=== PATIENT | female | born 1945 | race Caucasian/White ===

== ENCOUNTER 2017-11-19 12:37 | Emergency (ER) | payer OTHER ==
[~2017-11-19] VITALS: Ht 165.1 cm; Wt 94.8 kg
--- NOTE | 2017-11-19 12:39 | NUR ---
[facility] DT SYNCOPAL EPISODE. PATIENT NOTED WITH DISCOLORATION AND SLIGHT BLEEDING ON FACE/ NOSE BRIDGE. PER REPORT PATIENT IS HYPOTENSIVE IN FILED. A LITER OF NS GIVEN WITH HELP. PATIENT IS AWAKE AND ALERT. [place] SPEAKING, NOT IN DISTRESS. SKIN IS WARM TO TOUCH AND NON DIAPHORETIC. AFEBRILE,VSS
--- NOTE | 2017-11-19 13:05 | NUR ---
MARKETING COORDINATOR AT BEDSIDE FOR BLOOD DRAW.
[2017-11-19 13:08] LABS: BASOPHILS # (AUTO) 0.1 /CMM (0.0-0.2); BASOPHILS % (AUTO) 0.8 % (0.0-2.0); EOSINOPHILS % (AUTO) 1.4 % (0.0-6.0); HEMATOCRIT 33 % (33-45); HEMOGLOBIN 11.3 g/dL (11.5-14.8); LYMPHOCYTES # (AUTO) 1.9 /CMM (0.8-4.8); LYMPHOCYTES % (AUTO) 21.6 % (20.0-44.0); MEAN CORPUSCULAR HEMOGLOBIN 29 PG (26.0-33.0); MEAN CORPUSCULAR HGB CONC 35 g/dl (31.0-36.0); MEAN CORPUSCULAR VOLUME 83 fL (82-100); MONOCYTES # (AUTO) 0.5 /CMM (0.1-1.30); MONOCYTES % (AUTO) 5.3 % (2.0-12.0); NEUTROPHILS # (AUTO) 6.2 /CMM (1.8-8.9); NEUTROPHILS % (AUTO) 70.9 % (43.0-81.0); PLATELET COUNT (AUTO) 168 /CMM (150-450); RDW COEFFICIENT OF VARIATION 14.4 (11.5-15.0); RED BLOOD CELL COUNT(AUTO) 3.92 MIL/uL (4.0-5.2); WHITE BLOOD COUNT (AUTO) 8.8 K/uL (4.3-11.0)
--- NOTE | 2017-11-19 13:11 | NUR ---
PATIENT TAKEN TO CT VIA STRETCHER.
--- NOTE | 2017-11-19 13:18 | NUR ---
PATIENT RETURNED FROM CT IN STABLE CONDITION.
[2017-11-19 13:19] LABS: CARBON DIOXIDE 28 mmol/L (21-32); CHLORIDE 108 mmol/L (98-107); GLUCOSE 127 mg/dL (74-106); POTASSIUM 2.9 mmol/L (3.5-5.1); SODIUM SERUM 142 mmol/L (136-145); UREA NITROGEN, BLOOD 20 mg/dL (7-18)
[2017-11-19 13:22] LABS: INR 0.86 (0.85-1.15)
[2017-11-19 13:27] LABS: TROPONIN I < 0.017 ng/mL (0.00-0.056)
[2017-11-19] MEDS ORDERED: POTASSIUM CHLORIDE 20 MEQ TAB.PRT.SR PO ONE ×2 (14:00→14:04)
[2017-11-19] MEDS ORDERED: POTASSIUM CL. PREMIX PERIPHER. 100 ML ONE (14:04)
[2017-11-19] MEDS: POTASSIUM CL. PREMIX PERIPHER. 50 ML IV SCH ×2 (14:05→15:09)
[2017-11-19] MEDS ORDERED: IV NS 0.9% 1,000 ML BAG IV ONE (14:30)
[2017-11-19 16:42] VITALS: BP 145/76
--- NOTE | 2017-11-19 16:43 | NUR ---
IV removed. Catheter intact and site benign. Pressure and 4x4 applied to site. No bleeding noted. Patient discharged to home in stable condition. Written and verbal after care instructions given. Patient verbalizes understanding of instruction.
== END 2017-11-19 16:43 | disposition home or self-care (01) ==
LOC: ER 12:39
DX: S01.511A Laceration without foreign body of lip, initial encounter (principal); M25.531 Pain in right wrist; M79.89 Other specified soft tissue disorders; R55 Syncope and collapse; E86.0 Dehydration; E87.6 Hypokalemia; D64.9 Anemia, unspecified; I95.9 Hypotension, unspecified; R79.89 Other specified abnormal findings of blood chemistry; W18.09XA Striking against other object with subsequent fall, initial encounter; Y93.01 Activity, walking, marching and hiking; Y92.89 Other specified places as the place of occurrence of the external cause; Y99.8 Other external cause status
CPT/HCPCS: 36415; 70450-TC; 71045-TC; 73110; 80048-TC; 84484-TC; 85025-TC; 85730-TC; A4606; J3480; J7030; Z7610